=== PATIENT | female | born 1950 | race Caucasian/White ===

== ENCOUNTER → 2016-08-14 | Outpatient (CLI) | payer OTHER, BC ==
[~2016-08-14] VITALS: Ht 162.6 cm; Wt 62.3 kg
[~2016-08-14] MED LIST: ALEVE220 MG PO; ATARAX,VISTARIL25 MG PO; CALTRATE PLUS1 EACH PO; CELEBREX200 MG PO; CELECOXIB200 MG PO; CORTIZONE-10 PL57 GM TP; COUMADIN1 MG PO; ENDOCET 5-3251 EACH PO; HYDROCODON-ACE1 EAC7 PO; IRON325 MG PO; RECLAST5 MG/100 M IV; RED YEAST RICE600 M1 PO; TYLENOL REGULA325 MG PO; WARFARIN SODIUM1 MG PO; XARELTO15 MG PO; XARELTO20 MG PO
[2016-08-14 11:19] VITALS: BP 154/90
== END | disposition home or self-care (01) ==
LOC: IVINF 10:46
DX: M85.80 Other specified disorders of bone density and structure, unspecified site (principal)
CPT/HCPCS: 96365; J3489

== ENCOUNTER 2017-01-18 21:22 | Inpatient (IN) | payer OTHER, BC ==
[~2017-01-18] VITALS: Ht 160 cm; Wt 66.4 kg
[~2017-01-18 21:22] MED LIST changes: +DAILY MULTIPLE1 EACH PO
[2017-01-19 06:02] VITALS: BP 136/78
[2017-01-19 06:25] VITALS: BP 136/78
[2017-01-19 10:15] LABS: HEMATOCRIT 34.5 % (36.0-46.0); MCH 31.6 PG (29.0-34.0); MCHC 33.6 G/DL (30.0-36.0); MEAN PLAT.VOLUME 9.6 uM^3 (9.5-12.4); PLATELET COUNT 226 K/uL (156-360); RBC DIS.WIDTH-CV 12.4 % (11.8-14.6); RBC DIS.WIDTH-SD 43.3 % (39-53); RED BLOOD COUNT 3.67 M/uL (3.80-5.20); WHITE BLOOD COUNT 6.9 K/uL (4.1-10.2)
[2017-01-19 13:59] VITALS: BP 105/64
[2017-01-19 17:00] VITALS: BP 126/55
[2017-01-19 19:58] VITALS: BP 114/65
[2017-01-19 23:19] VITALS: BP 112/56
[2017-01-20 05:44] LABS: HEMATOCRIT 32.9 % (36.0-46.0)
[2017-01-20 06:07] LABS: ANION GAP 7 MEQ/L (2-14); CHLORIDE 104 MEQ/L (99-109); GFR ESTIMATE (CALCULATED) > 59 mL/min/; GLUCOSE 121 mg/dL (70-99); POTASSIUM 3.6 MEQ/L (3.7-5.4); SAMPLE HEMOLYSIS CHECK 0; SAMPLE ICTERIC CHECK 0; SAMPLE LIPEMIA CHECK 0; SODIUM 139 MEQ/L (136-147); UREA NITROGEN (BUN) 11 mg/dL (9-23)
[2017-01-20 08:01] VITALS: BP 93/51
[2017-01-20 15:26] VITALS: BP 109/58
[2017-01-21 00:10] VITALS: BP 119/57
[2017-01-21 07:04] LABS: ANION GAP 7 MEQ/L (2-14); CHLORIDE 109 MEQ/L (99-109); GFR ESTIMATE (CALCULATED) > 59 mL/min/; GLUCOSE 93 mg/dL (70-99); POTASSIUM 3.7 MEQ/L (3.7-5.4); SAMPLE HEMOLYSIS CHECK 0; SAMPLE ICTERIC CHECK 0; SAMPLE LIPEMIA CHECK 0; SODIUM 140 MEQ/L (136-147); UREA NITROGEN (BUN) 7 mg/dL (9-23)
[2017-01-21 07:47] VITALS: BP 132/74
[2017-01-21] MEDS ORDERED: ENDOCET 5-3251 EACH PO (08:30)
[2017-01-21] MEDS ORDERED: LOVENOX40 MG/0.4 SC (08:30)
== END 2017-01-21 15:30 | disposition home health service (06) | DRG 470 ==
LOC: ENRESERV 21:22 → 2SOUTH 01-19 05:22 → 3EAST 01-19 05:22 → 2SOUTH 01-19 09:23 → ENRESERV 01-19 12:07 → 2SOUTH 01-19 13:36 → 3EAST 01-19 13:47
PROVIDERS: Orthopaedic Surgery; Physician Assistant
PROC: 0SRB0JA Replacement of Left Hip Joint with Synthetic Substitute, Uncemented, Open Approach (ICD-10-PCS; principal; 2017-01-19)
DX: M16.12 Unilateral primary osteoarthritis, left hip (principal); E87.6 Hypokalemia; E55.9 Vitamin D deficiency, unspecified; Z96.641 Presence of right artificial hip joint; Z86.718 Personal history of other venous thrombosis and embolism; Z86.711 Personal history of pulmonary embolism
CPT/HCPCS: 73501; 80048; 85014; 85018; 85027; 97530 GP; J0131; J0690; J1100; J1170; J1650; J2250; J2310; J2405; J2550; J2710; J3010; J7030; J7050

== ENCOUNTER 2017-01-23 18:55 | Emergency (ER) | payer OTHER, BC ==
[~2017-01-23] VITALS: Ht 160 cm; Wt 63.0 kg
[~2017-01-23 18:55] MED LIST changes: +LOVENOX40 MG/0.4 SC
[2017-01-23 20:25] LABS: HEMATOCRIT 31.4 % (36.0-46.0); MCH 31.6 PG (29.0-34.0); MCHC 33.8 G/DL (30.0-36.0); MCV 93.7 FL (83-99); MEAN PLAT.VOLUME 9.1 uM^3 (9.5-12.4); PLATELET COUNT 261 K/uL (156-360); RBC DIS.WIDTH-CV 12.6 % (11.8-14.6); RBC DIS.WIDTH-SD 43.6 % (39-53); RED BLOOD COUNT 3.35 M/uL (3.80-5.20); WHITE BLOOD COUNT 4.8 K/uL (4.1-10.2)
[2017-01-23 20:37] LABS: CHLORIDE 108 mEq/L (99-109); POTASSIUM 3.8 mEq/L (3.7-5.4); SODIUM 140 mEq/L (136-147)
[2017-01-23 20:39] LABS: GLUCOSE 96 mg/dL (70-99)
[2017-01-23 20:40] LABS: ANION GAP 11 MEQ/L (2-14)
[2017-01-23 20:41] LABS: TOTAL BILIRUBIN 0.6 mg/dL (0.0-1.0)
[2017-01-23 20:42] LABS: ALKALINE PHOSPHATASE 133 IU/L (3-129)
[2017-01-23 20:43] LABS: GFR ESTIMATE (CALCULATED) > 59 mL/min/
[2017-01-23 20:44] LABS: DIRECT BILIRUBIN 0.2 mg/dL (0.0-0.3); UREA NITROGEN (BUN) 6 mg/dL (9-23)
[2017-01-23 20:46] LABS: LIPASE 4 U/L (1.0-51.0)
[2017-01-23 22:45] LABS: ADD MIUA? NO; BILIRUBIN NEGATIVE; BLOOD NEGATIVE; COLOR STRAW ((YELLOW)); GLUCOSE (STRIP) NEGATIVE; KETONES 20; LEUKOCYTES NEGATIVE; NITRITE NEGATIVE; PROTEIN (STRIP) NEGATIVE; SPECIFIC GRAVITY 1.029 (1.000-1.030); UROBILINOGEN 0.2 MG/DL (0.2-1.0)
[2017-01-23] MEDS ORDERED: ZANTAC300 MG PO (23:12)
[2017-01-23 23:32] VITALS: BP 130/74
== END 2017-01-23 23:33 | disposition home or self-care (01) ==
LOC: EME 18:55
PROVIDERS: Physician Assistant
DX: R09.1 Pleurisy (principal); R60.0 Localized edema; Z96.641 Presence of right artificial hip joint; Z86.718 Personal history of other venous thrombosis and embolism
CPT/HCPCS: 71275; 80048; 80076; 81003; 83690; 85027; 93005; 93971; 99281; 99285; J3010; J7030